=== PATIENT | male | born 1985 | race Caucasian/White ===

== ENCOUNTER 2019-04-22 12:02 | Emergency (ER) | payer OTHER ==
[~2019-04-22] VITALS: Ht 180.3 cm; Wt 88.5 kg
[2019-04-22 12:30] VITALS: BP 124/84
[2019-04-22] MEDS ORDERED: INSULIN REGULAR, HUMAN 100 UNIT/ML 10 ML VIAL ONE (13:00)
[2019-04-22] MEDS ORDERED: INSULIN REGULAR, HUMAN 100 UNIT/ML 10 ML VIAL SQ ONE (13:00)
== END 2019-04-22 13:36 | disposition home or self-care (01) ==
LOC: EDBD 12:02 → ER 12:02
DX: E10.65 Type 1 diabetes mellitus with hyperglycemia (principal); Z02.89 Encounter for other administrative examinations
CPT/HCPCS: 82962; 96372; 99283; J1815